=== PATIENT | male | born 1995 | race Caucasian/White ===

== ENCOUNTER 2017-11-28 19:26 | Emergency (ER) | payer BC ==
[2017-11-28] MEDS ORDERED: Sodium Chloride 0.9% 1,000 ML IV ONE (19:33)
[2017-11-28] MEDS ORDERED: Ketorolac 30 MG/ML SDV IVPUSH ONE (19:33)
[2017-11-28] MEDS ORDERED: Ondansetron 4 MG/2 ML SDV IVPUSH ONE (19:33)
--- NOTE | 2017-11-28 19:36 | EDM.PDOC ---
ED HPI GENERAL MEDICAL PROBLEM - General Stated Complaint: ABD PAIN Time Seen by Provider: 11/28/17 19:34 Source of Information: Reports: Patient - History of Present Illness INITIAL COMMENTS - FREE TEXT/NARRATIVE: HISTORY AND PHYSICAL: History of present illness: [Patient presents with intermittent abdominal pain associated with food generally occurring 30-60 minutes postmeal lasting for 2 hours, he reports epigastric pain nonradiating with nausea no vomiting no fever nausea vomiting chills sweats generally greasy deep-fried meals His last symptoms lasted from 2 PM to 5 PM today however at current he has 0 out of 10 pain ] Review of systems: As per history of present illness and below otherwise all systems reviewed and negative. Past medical history: As per history of present illness and as reviewed below otherwise noncontributory. Surgical history: As per history of present illness and as reviewed below otherwise noncontributory. Social history: No reported history of drug or alcohol abuse. Family history: As per history of present illness and as reviewed below otherwise noncontributory. Physical exam: HEENT: Atraumatic, normocephalic, pupils reactive, negative for conjunctival pallor or scleral icterus, mucous membranes moist, throat clear, neck supple, nontender, trachea midline. Lungs: Clear to auscultation, breath sounds equal bilaterally, chest nontender. Heart: S1S2, regular, negative for clicks, rubs, or JVD. Abdomen: Soft, nondistended, nontender. Negative for masses or hepatosplenomegaly. Negative for costovertebral tenderness. Pelvis: Stable nontender. Genitourinary: Deferred. Rectal: Deferred. Extremities: Atraumatic, negative for cords or calf pain. Neurovascular unremarkable. Neuro: Awake, alert, oriented. Cranial nerves II through XII unremarkable. Cerebellum unremarkable. Motor and sensory unremarkable throughout. Exam nonfocal. Diagnostics: [CBC CMP UA lipase ] Therapeutics: Wallace diet Follow-up with general surgery consider HIDA scan ] Impression: [ abdominal pain ] Definitive disposition and diagnosis as appropriate pending reevaluation and review of above. - Related Data Allergies Allergy/AdvReac Type Severity Reaction Status Date / Time No Known Allergies Allergy Verified 11/28/17 19:40 Home Meds: Home Meds . [No Known Home Meds] 04/08/14 [History] ED ROS GENERAL - Review of Systems Review Of Systems: See Below ED EXAM, GENERAL - Physical Exam Exam: See Below Course - Vital Signs Last Recorded V/S: Last Vital Signs Temp 98.3 F 11/28/17 19:41 Pulse 92 11/28/17 19:41 Resp 16 11/28/17 19:41 BP 135/75 11/28/17 19:41 Pulse Ox 95 11/28/17 19:41 - Orders/Labs/Meds Orders: Active Orders 24 hr Category Date Time Status Abdomen Ltd [US] Stat Exams 11/28/17 19:50 Taken UA W/MICROSCOPIC [URIN] Stat Lab 11/28/17 19:48 Ordered Labs: Laboratory Tests 11/28/17 11/28/17 11/28/17 Range/Units 19:45 19:45 19:48 WBC 12.33 H (4.0-11.0) K/uL RBC 5.00 (4.50-5.90) M/uL Hgb 14.9 (13.0-17.0) g/dL Hct 43.6 (38.0-50.0) % MCV 87.2 (80.0-98.0) fL MCH 29.8 (27.0-32.0) pg MCHC 34.2 (31.0-37.0) g/dL RDW Std Deviation 45.9 (28.0-62.0) fl RDW Coeff of Jessica 14 (11.0-15.0) % Plt Count 300 (150-400) K/uL MPV 9.60 (7.40-12.00) fL Neut % (Auto) 46.4 L (48.0-80.0) % Lymph % (Auto) 32.4 (16.0-40.0) % [place] % (Auto) 7.3 (0.0-15.0) % Eos % (Auto) 13.5 H (0.0-7.0) % Baso % (Auto) 0.4 (0.0-1.5) % Neut # (Auto) 5.7 (1.4-5.7) K/uL Lymph # (Auto) 4.0 H (0.6-2.4) K/uL [place] # (Auto) 0.9 H (0.0-0.8) K/uL Eos # (Auto) 1.7 H (0.0-0.7) K/uL Baso # (Auto) 0.1 (0.0-0.1) K/uL Nucleated RBC % 0.0 /100WBC Nucleated RBCs # 0 K/uL Sodium 141 (136-148) mmol/L Potassium 4.3 (3.5-5.1) mmol/L Chloride 106 (98-107) mmol/L Carbon Dioxide 26.2 (21.0-32.0) mmol/L BUN 18 (7.0-18.0) mg/dL Creatinine 1.2 (0.8-1.3) mg/dL Est Cr Clr Drug Dosing 105.08 mL/min Estimated GFR (MDRD) > 60.0 ml/min Glucose 100 (74-106) mg/dL Calcium 9.1 (8.5-10.1) mg/dL Total Bilirubin 0.4 (0.2-1.0) mg/dL AST 17 (15-37) IU/L ALT 21 (14-63) IU/L Alkaline Phosphatase 91 (46-116) U/L Total Protein 7.2 (6.4-8.2) g/dL Albumin 3.8 (3.4-5.0) g/dL Globulin 3.4 (2.0-3.5) g/dL Albumin/Globulin Ratio 1.1 L (1.3-2.8) Lipase 70 L (73-393) U/L Urine Color YELLOW Urine Appearance CLEAR Urine pH 6.0 (5.0-8.0) Ur Specific [place] 1.025 (1.001-1.035) Urine Protein NEGATIVE (NEGATIVE) mg/dL Urine Glucose (UA) NEGATIVE (NEGATIVE) mg/dL Urine Ketones TRACE H (NEGATIVE) mg/dL Urine Occult Blood NEGATIVE (NEGATIVE) Urine Nitrite NEGATIVE (NEGATIVE) Urine Bilirubin NEGATIVE (NEGATIVE) Urine Urobilinogen 0.2 (<2.0) EU/dL Ur Leukocyte Esterase NEGATIVE (NEGATIVE) Urine RBC 0-2 (0-2/HPF) Urine WBC 0-1 (0-5/HPF) Ur Epithelial Cells RARE (NONE-FEW) Calcium Oxalate Crystal MODERATE (NEGATIVE) Urine Bacteria FEW (NEGATIVE) Meds: Medications Discontinued Medications Generic Name Dose Route Start Last Admin Trade Name Freq PRN Reason Stop Dose Admin Sodium Chloride 1,000 mls @ 999 mls/hr 11/28/17 19:33 11/28/17 20:06 Normal Saline IV 11/28/17 20:33 Not Given STAT ONE Ketorolac Tromethamine 30 mg 11/28/17 19:33 11/28/17 20:06 Toradol IVPUSH 11/28/17 19:34 Not Given ONETIME ONE Ondansetron HCl 8 mg 11/28/17 19:33 11/28/17 20:06 Zofran IVPUSH 11/28/17 19:34 Not Given ONETIME ONE Departure - Departure Time of Disposition: 20:51 Disposition: Home, Self-Care 01 Condition: Good Clinical Impression: Abdominal pain - Discharge Information Referrals: PCP,None [Primary Care Provider] - Additional Instructions: Wallace diet as discussed Return if symptoms persist or worsen or new concerning symptoms develop Follow-up with primary care or general surgeon for consideration of HIDA scan testing [facility] - General Surgery [address], [address] [place] [address] The following information is given to patients seen in the emergency department who are being discharged to home. This information is to outline your options for follow-up care. We provide all patients seen in our emergency department with a follow-up referral. The need for follow-up, as well as the timing and circumstances, are variable depending upon the specifics of your emergency department visit. If you don't have a primary care physician on staff, we will provide you with a referral. We always advise you to contact your personal physician following an emergency department visit to inform them of the circumstance of the visit and for follow-up with them and/or the need for any referrals to a consulting specialist. The emergency department will also refer you to a specialist when appropriate. This referral assures that you have the opportunity for follow-up care with a specialist. All of these measure are taken in an effort to provide you with optimal care, which includes your follow-up. Under all circumstances we always encourage you to contact your private physician who remains a resource for coordinating your care. When calling for follow-up care, please make the office aware that this follow-up is from your recent emergency room visit. If for any reason you are refused follow-up, please contact the [facility] emergency department at and asked to speak to the emergency department charge nurse. - My Orders Last 24 Hours: My Active Orders 11/28/17 19:48 UA W/MICROSCOPIC [URIN] Stat 11/28/17 19:50 Abdomen Ltd [US] Stat - Assessment/Plan Last 24 Hours: My Active Orders 11/28/17 19:48 UA W/MICROSCOPIC [URIN] Stat 11/28/17 19:50 Abdomen Ltd [US] Stat
[2017-11-28 20:17] LABS: CHLORIDE,CL 106 mmol/L (98-107); SODIUM,NA 141 mmol/L (136-148)
--- NOTE | 2017-12-01 11:31 | US ---
EXAM DATE: 11/28/17 PATIENT'S AGE: 22 Patient: LINDA SMITH Facility: [place], [place] Site . Site : 1995 Study: US Abdomen [id number]/25/2018 8:31:20 PM Ordering Physician: Denver Duke Final Report: INDICATION: Postprandial pain TECHNIQUE: Ultrasound abdomen limited. COMPARISON: None FINDINGS: Gallbladder: No stones or sludge. Normal wall thickness. No pericholecystic fluid. Common bile duct: 1-2 mm. Liver: Unremarkable. Pancreas: Unremarkable. The distal body and tail are not well seen. IMPRESSION: Normal right upper quadrant ultrasound. Dictated by Breezy Schafer MD @ 11/28/2017 8:44:12 PM Dictated by: Breezy Schafer MD @ 11/28/2017 20:44:18 (Electronic Signature) Report Signed by Proxy. [facility]
== END 2017-11-28 21:06 | disposition home or self-care (01) ==
LOC: MW.ED 19:26
DX: R10.13 Epigastric pain (principal)
CPT/HCPCS: 36415; 76705; 76705-26; 80053; 81001; 83690; 85025; 99283; 99283-25